=== PATIENT | female | born 1980 | race Caucasian/White ===

== ENCOUNTER → 2019-02-20 | Day surgery (SDC) | payer BC, OTHER ==
[2012-06-28 06:30] VITALS: BP 119/81
[~2019-02-20] MED LIST: EFFEXOR75 MG; GLUMETZA1000 MG; ZYRTEC
== END ==
LOC: MSO 07:18
DX: D12.2 Benign neoplasm of ascending colon (principal); K21.9 Gastro-esophageal reflux disease without esophagitis; Q21.1 Atrial septal defect; I10 Essential (primary) hypertension; Z88.2 Allergy status to sulfonamides; Z79.899 Other long term (current) drug therapy; Z79.84 Long term (current) use of oral hypoglycemic drugs; Z83.79 Family history of other diseases of the digestive system; Z83.71 Family history of colonic polyps
CPT/HCPCS: 00813; J2704; J7120

== ENCOUNTER 2019-06-16 17:26 | Emergency (ER) | payer BC, OTHER ==
[~2019-06-16 17:26] MED LIST changes: +ALIGN4 MG PO; +ARMOUR THYROID15 M1 PO; +COLACE100 M1 PO; +HYDROCHLOROTH12.5 M2 PO; +METFORMIN ER500 MG PO; +MIRALAX17 GM PO; +OMEPRAZOLE40 MG PO; +PRINIVIL5 M1 PO; +VICTOZA 3-0.6 MG/0.1 SQ
[2019-06-16 18:43] LABS: BASO # 0.1 (0.02-0.10); EOS # 0.1 (0.04-0.40); EOS % 1.5 % (1.0-5.0); HEMATOCRIT 30.4 % (37.0-47.0); LYMPH# 2.4 (1.50-4.00); MEAN CELL VOLUME 78 fl (78-100); MEAN CORPUSCULAR HEMOGLOBIN 23 pg (27-31); MEAN CORPUSCULAR HGB CONC 30 g/dL (33-37); MEAN PLATELET VOLUME 10.4 fl (7.4-10.4); MONO # 0.8 (0.20-0.80); NEU # 5.5 (1.40-6.50); PLATELET COUNT 358 K/mm3 (130-400); RED BLOOD COUNT 3.88 M/mm3 (4.10-5.30); RED CELL DISTRIBUTION WIDTH 14.9 % (11.5-14.5); WHITE BLOOD COUNT 8.9 K/mm3 (4.8-10.8)
[2019-06-16 18:52] LABS: ALBUMIN 3.4 g/dL (3.5-5.0); POTASSIUM 4.2 mmol/L (3.5-5.1)
[2019-06-16 18:53] LABS: CALCIUM 7.4 mg/dL (8.3-10.5)
[2019-06-16 18:55] LABS: TOTAL PROTEIN 6.2 g/dL (6.4-8.3)
[2019-06-16 18:56] LABS: TOTAL BILIRUBIN 0.2 mg/dL (0.2-1.2)
[2019-06-16 18:57] LABS: URINE APPEARANCE CLEAR; URINE BILIRUBIN NEGATIVE (NEGATIVE); URINE BLOOD NEGATIVE (NEGATIVE); URINE COLOR YELLOW; URINE GLUCOSE NEGATIVE (NEGATIVE); URINE KETONE NEGATIVE (NEGATIVE); URINE LEUKOCYTE ESTERASE NEGATIVE (NEGATIVE); URINE NITRATE NEGATIVE (NEGATIVE); URINE PROTEIN(semi-quant) TRACE mg/dL (NEGATIVE); URINE UROBILINOGEN NORMAL (NORMAL)
[2019-06-16 19:38] LABS: ERYTHROCYTE SEDIMENTATION RATE 17 mm/hr (0-20)
[2019-06-16 20:41] VITALS: BP 120/75
== END 2019-06-16 20:40 | disposition home or self-care (01) ==
LOC: ED 17:26
PROVIDERS: Family Medicine
DX: K59.00 Constipation, unspecified (principal); D50.9 Iron deficiency anemia, unspecified; F17.210 Nicotine dependence, cigarettes, uncomplicated
CPT/HCPCS: J1885; J2270

== ENCOUNTER → 2019-06-20 | Outpatient (CLI) | payer BC, OTHER ==
[2019-06-16 20:41] VITALS: BP 120/75
== END ==
LOC: RAD 10:00
DX: K21.0 Gastro-esophageal reflux disease with esophagitis (principal); K25.9 Gastric ulcer, unspecified as acute or chronic, without hemorrhage or perforation

== ENCOUNTER 2019-09-14 20:17 | Emergency (ER) | payer BC, OTHER ==
[~2019-09-14 20:17] MED LIST changes: -ZYRTEC; +ZYRTEC ALLERGY10 MG PO
[2019-09-14] MEDS ORDERED: VICTOZA 3-0.6 MG/0.1 SQ (21:19)
[2019-09-14] MEDS ORDERED: ZOLOFT25 M1 PO (21:20)
[2019-09-14] MEDS ORDERED: ARMOUR THYROID60 M1 PO (21:21)
[2019-09-14 21:56] LABS: BASO # 0.1 (0.02-0.10); EOS # 0.2 (0.04-0.40); EOS % 1.7 % (1.0-5.0); HEMATOCRIT 37.8 % (37.0-47.0); HEMOGLOBIN 12.1 g/dL (12.5-16.0); LYMPH# 1.9 (1.50-4.00); MEAN CELL VOLUME 83 fl (78-100); MEAN CORPUSCULAR HEMOGLOBIN 26 pg (27-31); MEAN CORPUSCULAR HGB CONC 32 g/dL (33-37); MEAN PLATELET VOLUME 10.3 fl (7.4-10.4); MONO # 0.8 (0.20-0.80); NEU # 5.7 (1.40-6.50); PLATELET COUNT 390 K/mm3 (130-400); RED BLOOD COUNT 4.58 M/mm3 (4.10-5.30); RED CELL DISTRIBUTION WIDTH 14.4 % (11.5-14.5); WHITE BLOOD COUNT 8.6 K/mm3 (4.8-10.8)
[2019-09-14 21:58] LABS: ALBUMIN 3.9 g/dL (3.5-5.0)
[2019-09-14 21:59] LABS: POTASSIUM 3.3 mmol/L (3.5-5.1)
[2019-09-14 22:00] LABS: CALCIUM 9.7 mg/dL (8.3-10.5)
[2019-09-14 22:01] LABS: TOTAL PROTEIN 7.1 g/dL (6.4-8.3)
[2019-09-14 22:03] LABS: TOTAL BILIRUBIN 0.3 mg/dL (0.2-1.2)
[2019-09-14 22:07] LABS: PH-URINE 7.5 (5.0 - 8.0); URINE APPEARANCE HAZY; URINE BILIRUBIN NEGATIVE (NEGATIVE); URINE BLOOD NEGATIVE (NEGATIVE); URINE COLOR YELLOW; URINE GLUCOSE NEGATIVE (NEGATIVE); URINE KETONE NEGATIVE (NEGATIVE); URINE LEUKOCYTE ESTERASE 1+ (NEGATIVE); URINE NITRATE NEGATIVE (NEGATIVE); URINE PROTEIN(semi-quant) NEGATIVE (NEGATIVE); URINE UROBILINOGEN NORMAL (NORMAL)
[2019-09-14 22:54] VITALS: BP 139/97
== END 2019-09-14 22:54 | disposition home or self-care (01) ==
LOC: ED 20:17
PROVIDERS: Family Medicine
DX: R10.9 Unspecified abdominal pain (principal); E11.9 Type 2 diabetes mellitus without complications; I10 Essential (primary) hypertension; E78.5 Hyperlipidemia, unspecified; Z90.710 Acquired absence of both cervix and uterus; Z79.84 Long term (current) use of oral hypoglycemic drugs
CPT/HCPCS: J2270; J2405

== ENCOUNTER 2019-10-11 11:23 | Emergency (ER) | payer BC, OTHER ==
[~2019-10-11] VITALS: Ht 170.2 cm; Wt 72.7 kg
[~2019-10-11 11:23] MED LIST changes: +ARMOUR THYROID60 M1 PO; +ZOLOFT25 M1 PO
[2019-10-11 12:35] LABS: EOS # 0.1 (0.04-0.40); EOS % 1.2 % (1.0-5.0); HEMATOCRIT 37.4 % (37.0-47.0); HEMOGLOBIN 11.9 g/dL (12.5-16.0); LYMPH# 1.8 (1.50-4.00); MEAN CELL VOLUME 84 fl (78-100); MEAN CORPUSCULAR HEMOGLOBIN 27 pg (27-31); MEAN CORPUSCULAR HGB CONC 32 g/dL (33-37); MEAN PLATELET VOLUME 9.9 fl (7.4-10.4); MONO # 0.7 (0.20-0.80); NEU # 5.2 (1.40-6.50); PLATELET COUNT 355 K/mm3 (130-400); RED BLOOD COUNT 4.44 M/mm3 (4.10-5.30); RED CELL DISTRIBUTION WIDTH 14.1 % (11.5-14.5); WHITE BLOOD COUNT 7.8 K/mm3 (4.8-10.8)
[2019-10-11 13:49] LABS: PH-URINE 5.5 (5.0 - 8.0); URINE APPEARANCE HAZY; URINE BILIRUBIN NEGATIVE (NEGATIVE); URINE BLOOD NEGATIVE (NEGATIVE); URINE COLOR YELLOW; URINE GLUCOSE NEGATIVE (NEGATIVE); URINE KETONE 1+ (NEGATIVE); URINE LEUKOCYTE ESTERASE TRACE (NEGATIVE); URINE NITRATE NEGATIVE (NEGATIVE); URINE PROTEIN(semi-quant) NEGATIVE (NEGATIVE); URINE UROBILINOGEN NORMAL (NORMAL)
[2019-10-11 14:58] VITALS: BP 111/75
== END 2019-10-11 14:58 | disposition home or self-care (01) ==
LOC: ED 11:23
PROVIDERS: Family Medicine
DX: R11.0 Nausea (principal); R10.9 Unspecified abdominal pain; R73.03 Prediabetes; K58.9 Irritable bowel syndrome, unspecified; Z90.710 Acquired absence of both cervix and uterus; Z79.84 Long term (current) use of oral hypoglycemic drugs
CPT/HCPCS: J1885; J2405; J7030

== ENCOUNTER 2019-10-30 12:53 | Emergency (ER) | payer BC, OTHER ==
[2019-10-30 14:11] LABS: EOS % 0.3 % (1.0-5.0); HEMATOCRIT 42.3 % (37.0-47.0); HEMOGLOBIN 13.8 g/dL (12.5-16.0); LYMPH# 1.7 (1.50-4.00); MEAN CELL VOLUME 84 fl (78-100); MEAN CORPUSCULAR HEMOGLOBIN 27 pg (27-31); MEAN CORPUSCULAR HGB CONC 33 g/dL (33-37); MEAN PLATELET VOLUME 10.5 fl (7.4-10.4); MONO # 0.9 (0.20-0.80); PLATELET COUNT 428 K/mm3 (130-400); RED BLOOD COUNT 5.04 M/mm3 (4.10-5.30); RED CELL DISTRIBUTION WIDTH 15.7 % (11.5-14.5); WHITE BLOOD COUNT 11.8 K/mm3 (4.8-10.8)
[2019-10-30 14:15] LABS: ALBUMIN 4.1 g/dL (3.5-5.0); POTASSIUM 4.2 mmol/L (3.5-5.1)
[2019-10-30 14:16] LABS: CALCIUM 9.7 mg/dL (8.3-10.5)
[2019-10-30 14:18] LABS: TOTAL PROTEIN 7.2 g/dL (6.4-8.3)
[2019-10-30 14:19] LABS: TOTAL BILIRUBIN 0.6 mg/dL (0.2-1.2)
[2019-10-30] MEDS ORDERED: ONDANSETRON ODT8 MG PO (15:41)
[2019-10-30] MEDS ORDERED: PERCOCET 325 MG1 TA2 PO (15:44)
[2019-10-30 15:58] LABS: URINE APPEARANCE HAZY; URINE BILIRUBIN 1+ (NEGATIVE); URINE BLOOD NEGATIVE (NEGATIVE); URINE COLOR YELLOW; URINE GLUCOSE NEGATIVE (NEGATIVE); URINE KETONE 3+ (NEGATIVE); URINE LEUKOCYTE ESTERASE NEGATIVE (NEGATIVE); URINE NITRATE NEGATIVE (NEGATIVE); URINE PROTEIN(semi-quant) 1+ mg/dL (NEGATIVE); URINE UROBILINOGEN NORMAL (NORMAL)
[2019-10-30 15:59] LABS: URINE MUCUS PRESENT (NOT PRESENT)
[2019-10-30 16:02] VITALS: BP 111/73
== END 2019-10-30 16:10 | disposition home or self-care (01) ==
LOC: ED 12:53
PROVIDERS: Nurse Practitioner Family
DX: R10.84 Generalized abdominal pain (principal); G89.29 Other chronic pain; R11.2 Nausea with vomiting, unspecified; F32.9 Major depressive disorder, single episode, unspecified; I10 Essential (primary) hypertension; K21.9 Gastro-esophageal reflux disease without esophagitis; Z90.710 Acquired absence of both cervix and uterus; Z79.84 Long term (current) use of oral hypoglycemic drugs
CPT/HCPCS: J2270; J2405; J7030

== ENCOUNTER 2023-06-14 10:54 | Outpatient (RCR) | payer BC ==
[~2023-06-14 10:54] MED LIST changes: +ONDANSETRON ODT8 MG PO; +PERCOCET 325 MG1 TA2 PO
== END 2023-06-27 | disposition home or self-care (01) ==
LOC: PT
DX: M54.2 Cervicalgia (principal)

== ENCOUNTER 2023-07-02 08:00 | Outpatient (RCR) | payer BC | END 2023-07-26 | disposition home or self-care (01) | LOC: PT | DX: M54.2 Cervicalgia (principal) ==

== ENCOUNTER → 2023-09-06 | Outpatient (CLI) | payer BC | LOC: RAD 15:33 | DX: M54.13 Radiculopathy, cervicothoracic region (principal) ==